=== PATIENT | male | born 1960 | race Caucasian/White ===

== ENCOUNTER 2018-02-06 22:28 | Emergency (ER) | payer BC ==
--- NOTE | 2018-02-06 22:21 | EDM.PDOC ---
ED HPI GENERAL MEDICAL PROBLEM - General Stated Complaint: CODE BLUE RESP Time Seen by Provider: 02/06/18 22:30 Source of Information: Reports: EMS, Family History Limitations: Reports: No Limitations - History of Present Illness INITIAL COMMENTS - FREE TEXT/NARRATIVE: ED via [facility] with CPR in progress, RADHA device on, patient intubated. Epienphrine x 4 prehospital, and 2 shocks rhythm initially appeared coarse v fib. Bicarb also. No response or change in rhythm Girlfriend reported patient had complained of epigastric type pain and upper chest pain for approximately 8 hours. 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 Girlfriend notes no medical history. Shortly after taking pain meds had gasping breathes and collapsed, CPR initiated immediately and EMS contacted within 10minutes of CPR History reported of alcohol use, remote smoking history, . EMS noted rhythm appeared to be coarse V fib but no response to shocks or medication. Onset: Today - Related Data Allergies Allergy/AdvReac Type Severity Reaction Status Date / Time No Known Allergies Allergy Verified 04/24/15 23:06 Home Meds: Home Meds . [No Known Home Meds] 04/24/15 [History] Past Medical History - Past Health History Medical/Surgical History: Denies Medical/Surgical History Other Gastrointestinal History: hernia ED ROS GENERAL - Review of Systems Review Of Systems: ROS reveals no pertinent complaints other than HPI. ED EXAM, CPR - Physical Exam Exam: See Below Limited By: No Limitations General Appearance: Other (Pale cool dry, unresponsive, intubated with Radha Device operating) Eye Exam: Bilateral Eye: Abnormal Pupil (3mm fixed) Ears: Normal External Exam Head: Atraumatic Respiratory Chest: Other (Intubated, Bag assist. rare ineffective agonal respirations, faint motteling upper chest. ) Cardiovascular: Absent Heart Sounds, Pulse with Compression, CPR In Progress, Other (initial telemetry appearance coarse v-fib, ) Extremities: Pallor Neurological: Unresponsive Skin Exam: Dry, Pallor Course - Orders/Labs/Meds Meds: Medications Discontinued Medications Generic Name Dose Route Start Last Admin Trade Name Freq PRN Reason Stop Dose Admin Amiodarone HCl Confirm 02/06/18 23:18 Cordarone Administered 05/16/18 23:19 Dose 300 mg .ROUTE .STK-MED ONE Amiodarone HCl 300 mg 02/06/18 22:29 Cordarone IV 02/06/18 22:30 .STK-MED ONE Calcium Chloride Confirm 02/06/18 23:18 Calcium Chloride 10% Administered 02/06/18 23:19 Dose 1 gm .ROUTE .STK-MED ONE Calcium Chloride 1 gm 02/06/18 22:29 Calcium Chloride 10% IV 02/06/18 22:30 .STK-MED ONE Epinephrine HCl Confirm 02/06/18 23:19 Epinephrine 1:10,000 Administered 02/06/18 23:20 Dose 4 mg .ROUTE .STK-MED ONE Epinephrine HCl 1 mg 02/06/18 22:29 Epinephrine 1:10,000 IV 02/06/18 22:30 .STK-MED ONE Magnesium Sulfate 1 gm 02/06/18 22:29 Magnesium Sulfate 50% IV 02/06/18 22:30 .STK-MED ONE Naloxone HCl Confirm 02/06/18 23:18 Narcan Administered 02/06/18 23:19 Dose 2 mg .ROUTE .STK-MED ONE Naloxone HCl 2 mg 02/06/18 22:29 Narcan IV 02/06/18 22:30 .STK-MED ONE Sodium Bicarbonate Confirm 02/06/18 23:23 Sodium Bicarbonate 8.4% Administered 02/06/18 23:24 Dose 50 meq .ROUTE .STK-MED ONE Sodium Bicarbonate 50 meq 02/06/18 22:29 Sodium Bicarbonate 8.4% IV 02/06/18 22:30 .STK-MED ONE - Re-Assessments/Exams Free Text/Narrative Re-Assessment/Exam: 02/07/18 06:59 see CODE Blue Record. 2253 02/06/18 CPR discontinued. Greater than one hour "down time" and no response to efforts. Absence of heart tones and respiratory effort. Family at bedside. Departure - Departure Time of Disposition: 02:30 Disposition: 20 Preliminary Cause of *Q: Cardiac Arrest Clinical Impression: Cardiac arrest, PEA (Pulseless electrical activity) - Discharge Information Referrals: PCP,Unobtain [Primary Care Provider] - Forms: ED Department Discharge
[2018-02-06] MEDS ORDERED: Amiodarone 150 MG/3 ML SDV IV ONE (22:29)
[2018-02-06] MEDS ORDERED: Naloxone 2 MG/2 ML Syringe IV ONE (22:29)
[2018-02-06] MEDS ORDERED: Magnesium Sulfate (4.06 MEQ/ML) 1 GM/2 ML SDV IV ONE (22:29)
[2018-02-06] MEDS ORDERED: Calcium Chloride 10% 1 GM/10 ML Syringe IV ONE (22:29)
[2018-02-06] MEDS ORDERED: EPINEPHrine 1:10,000 1 MG/10 ML Syringe IV ONE (22:29)
[2018-02-06] MEDS ORDERED: Sodium Bicarbonate 8.4% 50 MEQ/50 ML Syringe IV ONE (22:29)
[2018-02-06] MEDS ORDERED: Amiodarone 150 MG/3 ML SDV ONE (23:18)
[2018-02-06] MEDS ORDERED: Calcium Chloride 10% 1 GM/10 ML Syringe ONE (23:18)
[2018-02-06] MEDS ORDERED: Naloxone 2 MG/2 ML Syringe ONE (23:18)
[2018-02-06] MEDS ORDERED: EPINEPHrine 1:10,000 1 MG/10 ML Syringe ONE (23:19)
[2018-02-06] MEDS ORDERED: Sodium Bicarbonate 8.4% 50 MEQ/50 ML Syringe ONE (23:23)
== END 2018-02-07 01:00 | disposition expired ==
LOC: DL.ED 22:28
DX: I46.9 Cardiac arrest, cause unspecified (principal)
CPT/HCPCS: 92950; 96374; 96375; 99285; J0171; J0282; J2310; J3475